=== PATIENT | male | born 1950 | race Caucasian/White ===

== ENCOUNTER 2016-11-21 18:43 | Emergency (ER) | payer MEDICARE ==
[~2016-11-21] VITALS: Ht 182.9 cm; Wt 113.6 kg
[~2016-11-21 18:43] MED LIST: ALLO100T PO; ASPI81TA2 PO; COZ25 PO; IND25C PO; MTP50TCR PO
[2016-11-21 18:49] VITALS: BP 143/81; PULSE 96; RESP 22; O2SAT 97
--- NOTE | 2016-11-21 18:51 | ED.REPORT ---
HPI-Trauma Minor / Fall Date of Service Nov 21, 2016 ED Provider: Sravan Jacobs MD Patient is a 66 year old male with a history of hypertension who presents to the ED via EMS due to a fall. Associated symptoms include mild numbness in his leg, inability to bear weight on his leg or walk after the fall and right shoulder pain. He denies losing consciousness, neck pain, abdominal pain, chest pain or shortness of breath. The patient reports that he was working on his boat when he got caught up in a crabbing pot rope and fell 4ft onto the concrete ground. Patient is not currently on anticoagulants Nursing Notes Stated Complaint: FALL Chief Complaint: Multiple Trauma/Fall Nursing Notes Reviewed: Yes ([employer], blank, meds not reconciled) Allergies: Coded Allergies: No Known Drug Allergies (Verified Allergy, Unknown, 12/28/10) Scheduled Allopurinol-Expunged Drug, Do Not Renew! (Allopurinol-Expunged Drug, Do Not Renew!) 100 Mg Tablet 100 MG PO DAILY Aspirin-Expunged Drug, Do Not Renew! (Aspirin-Expunged Drug, Do Not Renew!) 81 Mg Tablet 81 MG PO DAILY Indomethacin-Expunged Drug, Do Not Renew! (Indocin-Expunged Drug, Do Not Renew! ) 25 Mg Capsule 50 MG PO PRN TAKE WITH FOOD Losartan-Expunged Drug, Do Not Renew! (Losartan-Expunged Drug, Do Not Renew!) 25 Mg Tablet 50 MG PO DAILY Metoprolol Suc-Expunged Drug, Do Not Renew! (Metoprolol Suc-Expunged Drug, Do Not Renew!) 50 Mg Tber 50 MG PO DAILY General Time Seen by MD: 18:48 Chief Complaint Fall Hx Obtained From: Patient Arrived By: Ambulance Onset Occurred: Just prior to arrival Caused by: Fall from height... (3-6 feet) Context: Occurred at: Home injury Location: Hip right Shoulder right Quality: Painful Severity: Current: Moderate Recent Healthcare: No recent hospitalization Similar Sx Previous: No Past Medical History Past Medical History Hypertension Gout History of perforated diverticulitis History of possible TIA Past Surgical History Call resection and colostomy for ruptured diverticulitis Left rotator cuff surgery Foot surgery Vasectomy with reversal Reports: Cataract surgery Smoking History Former Smoker (quit more than 20 years ago) Social History Alcohol Use: 1-3 per day Review of Systems Constitutional: Denies: Chills, Fever Respiratory: Denies: Non-productive cough, Shortness of breath Musculoskeletal: Reports: Extremity pain (right hip and shoulder) Skin: Denies Itching, Denies Rash Neurologic: Reports: Numbness, Problem walking, Denies: Change LOC Complete sys rev & neg: except as marked. Cardiovascular: Denies: Chest pain GI: Denies: Abdominal pain Physical Exam Initial Vital Signs Vital Signs (First) Date Time Temp Pulse Resp B/P Pulse Ox O2 Delivery O2 Flow Rate FiO2 11/21/16 18:49 96 22 143/81 97 Room Air 11/21/16 21:15 37.2 Initial VS: Reviewed General/Constitutional: Awake, Alert Distress / Hydration: Positive: Distress mild Neck: Atraumatic, Supple Head / Eyes: Atraumatic, Normocephalic, PERRL, EOMI Respiratory / Chest: Atraumatic, Breath sounds NL, Breath sounds = bilat, No respiratory distress Cardiovascular: Heart rate NL, Regular rhythm, Heart sounds NL Abdomen: Atraumatic, Soft, Non-tender Upper Extremity / MS: Neurologic intact, Vascular intact decreased range of motion of the right shoulder no clavicle tenderness no step offs Lower Extremity / Pelvis / MS: Neurologic intact, Vascular intact Right Hip: Negative: Leg shortened no external rotation decreased range of motion of the right femur and hip Skin: Atraumatic, Color NL, No rash, Warm, Dry Neurologic: Oriented X3, Speech NL, No motor deficits, No sensory deficits Psychiatric: Affect NL, Mood NL Interpretation & Diagnostics Interpretation & Diagnostics: CT PELVIS: IMPRESSION: Comminuted fracture involving the anterior column of the right acetabulum and extending into the right superior pubic ramus. Nondisplaced right inferior pubic ramus fracture. Dictated by: Earnest Amos M.D. on 11/21/2016 at 21:57 Approved by: Earnest Amos M.D. on 11/21/2016 at 22:03 X-Ray Interpretation Xray Interpretation: IMPRESSION: Right shoulder osteoarthritis. No fracture Dictated by: Earnest Amos M.D. on 11/21/2016 at 21:19 Approved by: Earnest Amos M.D. on 11/21/2016 at 21:20 X-Ray Ordered: Shoulder right Interpretation / Wet Read by: Interpret - Radiologist Xray Interpretation: IMPRESSION: Cortical step-off and irregularity of the right superior pubic ramus suspicious for fracture. Recommend further evaluation with CT pelvis. Dictated by: Earnest Amos M.D. on 11/21/2016 at 21:26 Approved by: Earnest Amos M.D. on 11/21/2016 at 21:26 X-Ray Ordered: Pelvis Interpretation / Wet Read by: Interpret - Radiologist Xray Interpretation: IMPRESSION: Cortical irregularity of the right superior pubic ramus. This raises the suspicion of fracture although not well-seen radiographically comment technically indeterminate. As clinically warranted, recommend further assessment with dedicated CT pelvis Dictated by: Earnest Amos M.D. on 11/21/2016 at 21:20 Approved by: Earnest Amos M.D. on 11/21/2016 at 21:24 X-Ray Ordered: Femur right Interpretation / Wet Read by: Interpret - Radiologist Re-Eval/Medical Decision Med Decision/Clinical Course This is a 66-year-old male who presents after a fall of 3-4 feet, off a boat onto a garage floor where he impacted with his right shoulder and right hip. He reports right shoulder and right hip pain, but denies hitting his head, denies loss of conscious, denies neck pain, denies chest pain, denies abdominal pain. Her the pain is that she has been unable to bear weight. On exam has normal vitals. He is no gross deformity or step-off of the shoulder ,'s neurovascularly intact, but does have decreased range of motion. He has a known previous rotator cuff injury to the shoulder. He does have significant pain of the right hip, decreased range of motion of the hip. No gross dislocation or deformity is evident. The leg is neurovascularly intact. There are no open wounds. He has no visible signs of trauma to head, and does not describe the mechanism for cervical spine injury. Plain radiographs of the shoulder were obtained and were negative, plain radiographs of the right hip raised question of a possible pubic rami fracture, but the patient is having significant pain-therefore CT imaging was pursued and reveals a comminuted right acetabular fracture as well. Given this transfer to [facility] for management of the acetabular fractures indicated, the case was discussed. The patient received titrated pain medicine. He is being transported by [facility] for continued pain control and management. Source of Hx: Old records Re-Evaluation/Progress #1: Time of Eval: 21:32 Re-Evaluation/Progress Note: Discussed X-ray results and plan for CT. Re-Evaluation/Progress #2: Time of Eval: 22:35 Re-Evaluation/Progress Note: Discussed CT results and plan to transfer to [facility] after consult. Re-Evaluation/Progress #3: Time of Eval: 23:33 Re-Evaluation/Progress Note: Discussed plan for transfer to [facility]. Patient understands and agrees to plan. All questions were addressed. Consultation : Call Returned at: 23:20 Service Person: Agrees with eval, Agrees with plan, Accepts admit Note: Consult with Dr. Dumont at [facility] who agrees to accept the patient. Counseled Regarding: Diagnosis, Lab results, Need for transfer Discharge & Departure Impression: Primary Impression: Right acetabular fracture Encounter type: initial encounter Sublocation of acetabulum: anterior column Fracture type: closed Fracture alignment: displaced Qualified Code: S32.431A - Displaced fracture of anterior column [iliopubic] of right acetabulum, initial encounter for closed fracture Additional Impressions: Fracture of right inferior pubic ramus Encounter type: initial encounter Fracture type: closed Qualified Code: S32.591A - Other specified fracture of right pubis, initial encounter for closed fracture Right shoulder injury Encounter type: initial encounter Qualified Code: S49.91XA - Unspecified injury of right shoulder and upper arm, initial encounter Disposition: Transfer, Acute Care Facility Discharge Condition All VS Reviewed: Yes Condition: Stable Referrals: Sagar Dudley MD (PCP) Scribe Attestation Portions of this note were transcribed by Nancy Urbina. I, Dr. Jacobs personally performed the history, physical exam and medical decision-making; I reviewed and confirmed the accuracy of the information in the transcribed note. Signed by: Nancy Patel, 11/21/16 copies to: Sagar Dudley MD, Matthew F MD Nov 21, 2016 18:51 Lili Urbina Nov 21, 2016 18:59
[2016-11-21] MEDS ORDERED: Ondansetron 2 mg/mL 2 mL Inj IVPUSH ONE (19:00)
[2016-11-21] MEDS: HYDROmorphone 0.5 mg/0.5 mL iSecure Syringe IVPUSH PRN ×4 (19:11→23:48)
[2016-11-21] MEDS ORDERED: HYDROmorphone 1 mg/mL Inj IVPUSH ONE (21:00)
[2016-11-21 21:15] VITALS: BP 113/54; PULSE 89; RESP 20; O2SAT 96
--- NOTE | 2016-11-21 21:23 | DRSVH ---
PROCEDURE: X-RAY RIGHT SHOULDER, MINIMUM TWO VIEWS ([id number]) INDICATIONS: pain, fall TECHNIQUE: 3 views of the shoulder were acquired. COMPARISON: None. FINDINGS: Bones: No fractures or dislocations. No suspicious bony lesions. Visualized ribs appear intact. G lenohumeral and acromial clavicular degenerative joint disease Soft tissues: No suspicious soft tissue calcifications. IMPRESSION: Right shoulder osteoarthritis. No fracture Dictated by: Earnest Amos M.D. on 11/21/2016 at 21:19 Approved by: Earnest Amos M.D. on 11/21/2016 at 21:20
--- NOTE | 2016-11-21 21:27 | DRSVH ---
PROCEDURE: X-RAY RIGHT FEMUR, TWO VIEWS ([id number]) INDICATIONS: pain,fall TECHNIQUE: 5 views of the femur were acquired. COMPARISON: [facility], CR, XR PELVIS W LATERAL HIP RT, 11/21/2016, 19:40. FINDINGS: Bones: Cortical step-off involving the right superior pubic ramus is seen. Lower lumbar degenerative disc disease. Mild to moderate bilateral hip joint degeneration. Soft tissues: No suspicious soft tissue calcifications or masses. IMPRESSION: Cortical irregularity of the right superior pubic ramus. This raises the suspicion of fra cture although not well-seen radiographically comment technically indeterminate. As clinically nani valencia, recommend further assessment with dedicated CT pelvis Dictated by: Earnest Amos M.D. on 11/21/2016 at 21:20 Approved by: Earnest Amos M.D. on 11/21/2016 at 21:24
--- NOTE | 2016-11-21 21:29 | DRSVH ---
PROCEDURE: X-RAY PELVIS W/LAT HIP (RT) ([id number]) INDICATIONS: pain, fall TECHNIQUE: AP pelvis with lateral view(s) of the right hip(s). COMPARISON: None. FINDINGS: Bones: There is cortical irregularity/step off involving the right superior pubic ramus. Geit-gi-igem rate right hip joint degeneration. No suspicious bony lesions. Soft tissues: The visualized bowel gas pattern is normal. No suspicious soft tissue calcifications. IMPRESSION: Cortical step-off and irregularity of the right superior pubic ramus suspicious for fracture. Recomme nd further evaluation with CT pelvis. Dictated by: Earnest Amos M.D. on 11/21/2016 at 21:26 Approved by: Earnest Amos M.D. on 11/21/2016 at 21:26
--- NOTE | 2016-11-21 22:05 | DRSVH ---
PROCEDURE: CT PELVIS WITHOUT CONTRAST ([id number]) INDICATIONS: fall, ro fx TECHNIQUE: Noncontrast 3 mm axial sections acquired through the bony pelvis, with coronal and sagittal reformatt ing. COMPARISON: [facility], CR, XR PELVIS W LATERAL HIP RT, 11/21/2016, 19:40. [facility], CR, XR FEMUR 2VW RT, 11/21/2016, 19:40. FINDINGS: Image quality: Excellent. Bones: There is a nondisplaced comminuted fracture involving the anterior column of the right acetabu lum and extending into the right superior pubic ramus. There is also a nondisplaced right inferior pu bic ramus fracture, image 74 series 2. Degenerative disc disease in lower lumbar spine. Alignment of the sacroiliac joints and pubic symphys is appears within normal limits. There is mild bilateral hip joint degeneration. Possible 2 mm bone i sland seen within the right femoral neck although technically nonspecific. Soft tissues: Bilateral fat containing inguinal hernias. Intrapelvic contents grossly unremarkable. T here is right flank subcutaneous hematoma/contusion. IMPRESSION: Comminuted fracture involving the anterior column of the right acetabulum and extending into the righ t superior pubic ramus. Nondisplaced right inferior pubic ramus fracture. Dictated by: Earnest Amos M.D. on 11/21/2016 at 21:57 Approved by: Earnest Amos M.D. on 11/21/2016 at 22:03
[2016-11-21 23:48] VITALS: BP_SYST 123; BP_DIAS 123; BP_DIAS 58; PULSE 88; RESP 20; O2SAT 96
[2016-11-21 23:53] VITALS: BP 123/58; PULSE 88; RESP 20; O2SAT 96
== END 2016-11-21 23:55 | disposition short-term general hospital (02) ==
LOC: SED 18:43
DX: S32.431A Displaced fracture of anterior column [iliopubic] of right acetabulum, initial encounter for closed fracture (principal); S32.591A Other specified fracture of right pubis, initial encounter for closed fracture; S49.91XA Unspecified injury of right shoulder and upper arm, initial encounter; W17.89XA Other fall from one level to another, initial encounter; Y92.008 Other place in unspecified non-institutional (private) residence as the place of occurrence of the external cause; Y93.89 Activity, other specified; Y99.8 Other external cause status; I10 Essential (primary) hypertension; Z87.891 Personal history of nicotine dependence; Z79.82 Long term (current) use of aspirin
CPT/HCPCS: 72192; 73030; 73501; 73551; 96374; 96375; 96376; 99285; J1170; J1885; J2270; J2405